=== PATIENT | male | born 1990 | race Caucasian/White ===

== ENCOUNTER 2018-04-10 19:15 | Emergency (ER) | payer BC, OTHER ==
[2018-04-10] MEDS: SODIUM CHLORIDE 0.9% FLUSH 10 ML SOL IV PRN ×3 (20:00→20:32)
[2018-04-10] MEDS ORDERED: KETOROLAC TROMETHAMINE 30 MG/ML SOL ONE (20:12)
[2018-04-10] MEDS ORDERED: LORAZEPAM 2 MG/ML SOL ONE (20:13)
[2018-04-10] MEDS ORDERED: KETOROLAC TROMETHAMINE 30 MG/ML SOL IV ONE (20:13)
[2018-04-10] MEDS ORDERED: LORAZEPAM 2 MG/ML SOL IV ONE (20:13)
[2018-04-10 20:23] LABS: BASOPHILS % (AUTO) 2 % (0-3); EOSINOPHILS % (AUTO) 2 % (0-9); HEMATOCRIT 46 % (39-53); LYMPHOCYTES % (AUTO) 37.24 % (10-50); MEAN CORPUSCULAR HEMOGLOBIN 30.3 pg (27.0-32.0); MEAN CORPUSCULAR HGB CONC 34.6 gm/dl (32.0-36.0); MEAN CORPUSCULAR VOLUME 87 fL (80-100); MONOCYTES % (AUTO) 6.3 % (0-12); NEUTROPHILS % (AUTO) 52.9 % (37-80)
[2018-04-10] MEDS ORDERED: HYDROMORPHONE 1 MG/ML SYRINGE IV ONE ×2 (20:29→21:47)
[2018-04-10] MEDS ORDERED: HYDROMORPHONE 1 MG/ML SYRINGE ONE ×2 (20:30→21:47)
[2018-04-10 20:37] LABS: ALBUMIN 4.2 gm/dl (3.4-5.0); BILIRUBIN,TOTAL 0.4 mg/dl (0.2-1.0); CALCIUM 8.6 mg/dl (8.5-10.1); CARBON DIOXIDE 29.3 mEq/L (21-32); CREATININE 1.22 mg/dl (0.80-1.30); POTASSIUM 3.6 mMol/L (3.5-5.1); TOTAL PROTEIN 7.2 gm/dl (6.4-8.2)
[2018-04-10] MEDS ORDERED: ONDANSETRON HCL 4 MG/2 ML SOL ONE (20:56)
[2018-04-10] MEDS ORDERED: ONDANSETRON HCL 4 MG/2 ML SOL IV ONE (20:59)
[2018-04-10] MEDS ORDERED: SODIUM CHLORIDE 0.9% 1000ML 1,000 ML IV ONE (21:00)
[2018-04-10 21:15] VITALS: TEMP 99.1
[2018-04-10 22:23] VITALS: BP 125/51; PULSE 60; RESP 14; O2SAT 100
== END 2018-04-10 22:31 | disposition short-term general hospital (02) ==
LOC: ED 19:15
DX: R20.0 Anesthesia of skin (principal); M62.81 Muscle weakness (generalized); Z72.0 Tobacco use; G43.909 Migraine, unspecified, not intractable, without status migrainosus
CPT/HCPCS: 70470; 80053; 85025; 93005; 96365; 96374; 96375; 99284; 99285; J1885; J2060; J2405; Q9967; J1170

== ENCOUNTER 2018-04-12 10:45 | Emergency (ER) | payer BC ==
[2018-04-12 10:51] VITALS: RESP 18; TEMP 97.6
[2018-04-12] MEDS ORDERED: LORAZEPAM 2 MG/ML SOL IM ONE (10:57)
[2018-04-12 11:59] LABS: BASOPHILS % (AUTO) 2 % (0-3); EOSINOPHILS % (AUTO) 2 % (0-9); HEMATOCRIT 44 % (39-53); HEMOGLOBIN 15.1 gm/dl (13.5-17.7); LYMPHOCYTES % (AUTO) 34.92 % (10-50); MEAN CORPUSCULAR HEMOGLOBIN 30.6 pg (27.0-32.0); MEAN CORPUSCULAR HGB CONC 34.3 gm/dl (32.0-36.0); MEAN CORPUSCULAR VOLUME 89 fL (80-100); MONOCYTES % (AUTO) 6.9 % (0-12)
[2018-04-12 12:14] LABS: INR 1.06 (0.86-1.12)
[2018-04-12 12:20] LABS: ALBUMIN 3.9 gm/dl (3.4-5.0); ALKALINE PHOSPHATASE 50 IU/L (46-116); ALT 41 IU/L (14-63); AST 18 IU/L (15-37); BILIRUBIN,TOTAL 0.4 mg/dl (0.2-1.0); BLOOD UREA NITROGEN 13 mg/dl (7-18); CALCIUM 8.4 mg/dl (8.5-10.1); CARBON DIOXIDE 28.6 mEq/L (21-32); CHLORIDE 106 mMol/L (98-107); CREATININE 1.12 mg/dl (0.80-1.30); GLOM FILT RATE 78 mL/min (>60); GLUCOSE 92 mg/dl (74-106); SODIUM 139 mMol/L (136-145); TOTAL PROTEIN 6.8 gm/dl (6.4-8.2); TROP I < 0.017 ng/ml (0.000-0.056)
[2018-04-12 13:59] VITALS: BP 114/63; PULSE 59; O2SAT 94
== END 2018-04-12 15:30 | disposition home or self-care (01) ==
LOC: ED 10:45
DX: R56.9 Unspecified convulsions (principal)
CPT/HCPCS: 36415; 70544; 70551; 71045; 80053; 84484; 85025; 85610; 85730; 93005; 99284; 99285

== ENCOUNTER 2018-04-14 13:01 | Emergency (ER) | payer BC ==
[2018-04-14] MEDS ORDERED: KETOROLAC TROMETHAMINE 30 MG/ML SOL IV ONE (13:17)
[2018-04-14] MEDS ORDERED: SODIUM CHLORIDE 0.9% 1000ML 1,000 ML IV ONE (13:17)
[2018-04-14] MEDS ORDERED: PROCHLORPERAZINE EDISYLATE 5 MG/ML SOL IV ONE (13:17)
[2018-04-14 13:18] VITALS: RESP 18; TEMP 97.9
[2018-04-14] MEDS ORDERED: PROCHLORPERAZINE EDISYLATE 5 MG/ML SOL ONE (13:21)
[2018-04-14] MEDS ORDERED: KETOROLAC TROMETHAMINE 30 MG/ML SOL ONE (13:21)
[2018-04-14 15:31] VITALS: BP 112/78; PULSE 50; O2SAT 99
== END 2018-04-14 15:26 | disposition home or self-care (01) ==
LOC: ED 13:01
DX: G43.909 Migraine, unspecified, not intractable, without status migrainosus (principal)
CPT/HCPCS: 96365; 96374; 96375; 99284; J0780; J1885

== ENCOUNTER 2018-04-15 08:45 | Emergency (ER) | payer BC ==
[2018-04-15 08:52] VITALS: RESP 20
[2018-04-15] MEDS ORDERED: KETOROLAC TROMETHAMINE 30 MG/ML SOL IV ONE (09:03)
[2018-04-15] MEDS ORDERED: PROMETHAZINE HYDROCHLORIDE 25 MG/ML SOL IV ONE (09:03)
[2018-04-15] MEDS ORDERED: SODIUM CHLORIDE 0.9% 1000ML 1,000 ML IV ONE (09:03)
[2018-04-15] MEDS ORDERED: SODIUM CHLORIDE 0.9% FLUSH 10 ML SOL IV PRN (09:03)
[2018-04-15] MEDS ORDERED: KETOROLAC TROMETHAMINE 30 MG/ML SOL ONE (09:16)
[2018-04-15] MEDS ORDERED: PROMETHAZINE HYDROCHLORIDE 25 MG/ML SOL ONE (09:16)
[2018-04-15] MEDS ORDERED: SUMATRIPTAN SUCCINATE 6 MG/0.5 ML SOL SC PRN (09:53)
[2018-04-15] MEDS ORDERED: SUMATRIPTAN SUCCINATE 6 MG/0.5 ML SOL SC ONE (10:12)
[2018-04-15 10:28] VITALS: TEMP 97.5; O2SAT 100
[2018-04-15] MEDS ORDERED: APAP/HYDROCODONE 325/5 TAB PO ONE (11:02)
[2018-04-15] MEDS ORDERED: APAP/HYDROCODONE 325/5 TAB ONE (11:05)
[2018-04-15 11:19] VITALS: BP 129/84; PULSE 64
== END 2018-04-15 12:12 | disposition home or self-care (01) ==
LOC: ED 08:45
DX: G43.909 Migraine, unspecified, not intractable, without status migrainosus (principal)
CPT/HCPCS: 96365; 96372; 96374; 96375; 99284; 99285; J1885; J2550; J3030; A9270-GY

== ENCOUNTER 2019-01-17 14:11 | Emergency (ER) | payer BC ==
[2019-01-17] MEDS ORDERED: SODIUM CHLORIDE 0.9% FLUSH 10 ML SOL IV PRN (14:13)
[2019-01-17 14:27] LABS: BASOPHILS % (AUTO) 1 % (0-3); EOSINOPHILS % (AUTO) 2 % (0-9); HEMATOCRIT 50 % (39-53); HEMOGLOBIN 17.1 gm/dl (13.5-17.7); LYMPHOCYTES % (AUTO) 30.1 % (10-50); MEAN CORPUSCULAR HEMOGLOBIN 30.1 pg (27.0-32.0); MEAN CORPUSCULAR HGB CONC 34.1 gm/dl (32.0-36.0); MEAN CORPUSCULAR VOLUME 88 fL (80-100); MONOCYTES % (AUTO) 6.7 % (0-12); NEUTROPHILS % (AUTO) 60.8 % (37-80)
[2019-01-17 14:45] LABS: BLOOD UREA NITROGEN 15 mg/dl (7-18); CALCIUM 8.7 mg/dl (8.5-10.1); CARBON DIOXIDE 27.9 mEq/L (21-32); CHLORIDE 105 mMol/L (98-107); CREATININE 1.25 mg/dl (0.80-1.30); GLUCOSE 116 mg/dl (74-106); POTASSIUM 3.6 mMol/L (3.5-5.1); SODIUM 142 mMol/L (136-145); TROP I < 0.017 ng/ml (0.000-0.056)
[2019-01-17 16:07] VITALS: TEMP 97.5
[2019-01-17 17:29] VITALS: O2SAT 96
[2019-01-17 17:32] VITALS: BP 142/80; PULSE 78; RESP 16
== END 2019-01-17 16:55 | disposition home or self-care (01) ==
LOC: SUPCPDRO 14:11 → ED 14:11
DX: G43.011 Migraine without aura, intractable, with status migrainosus (principal); I63.9 Cerebral infarction, unspecified; R29.701 NIHSS score 1; R53.1 Weakness; R40.2362 Coma scale, best motor response, obeys commands, at arrival to emergency department; R40.2142 Coma scale, eyes open, spontaneous, at arrival to emergency department; R40.2252 Coma scale, best verbal response, oriented, at arrival to emergency department
CPT/HCPCS: 70450; 70544; 70549; 70551; 80048; 82962; 84484; 85025; 85610; 85730; 93005; 99284; 99291